=== PATIENT | female | born 1995 | race Two or more races ===

== ENCOUNTER → 2024-03-23 | Emergency (ER) | payer OTHER ==
[~2024-03-23] VITALS: Ht 154.9 cm; Wt 89.8 kg
[~2024-03-23] MED LIST: ACETAMINOPHEN 500 MG GEL..CAP PO STA
== END | disposition home or self-care (01) ==
LOC: ER 02:41
DX: S00.81XA Abrasion of other part of head, initial encounter (principal); S50.11XA Contusion of right forearm, initial encounter; W19.XXXA Unspecified fall, initial encounter; Y93.89 Activity, other specified; Y92.89 Other specified places as the place of occurrence of the external cause; Y99.8 Other external cause status; Z91.013 Allergy to seafood